=== PATIENT | female | born 1980 | race Caucasian/White ===

== ENCOUNTER 2018-01-06 12:49 | Inpatient (IN) | payer OTHER ==
[~2018-01-06] VITALS: Ht 162.6 cm; Wt 51.7 kg
[2018-01-08] MEDS ORDERED: MAG HYDROX/AL HYDROX/SIMETH 30 ML LIQUID UDC PO PRN (19:45)
[2018-01-08] MEDS ORDERED: MAGNESIUM HYDROXIDE 30 ML LIQUID UDC PO PRN (19:45)
[2018-01-08] MEDS ORDERED: IBUPROFEN 400 MG TABLET PO PRN (19:45)
[2018-01-08] MEDS ORDERED: ONDANSETRON ODT 4 MG TAB.RAPDIS SL PRN (19:45)
[2018-01-08] MEDS ORDERED: ONDANSETRON 4 MG/2 ML VIAL IM PRN (19:45)
[2018-01-08] MEDS ORDERED: LOPERAMIDE HCL 2 MG CAPSULE PO PRN ×2 (19:45)
[2018-01-08] MEDS ORDERED: DICYCLOMINE HCL 20 MG TABLET PO PRN (19:45)
[2018-01-08] MEDS ORDERED: ACETAMINOPHEN 325 MG TABLET PO PRN (19:45)
[2018-01-08] MEDS ORDERED: LORAZEPAM 2 MG/1 ML VIAL IM PRN (19:45)
[2018-01-08] MEDS ORDERED: LORAZEPAM 1 MG TABLET PO PRN ×2 (19:45)
--- NOTE | 2018-01-08 19:55 | NUR ---
INTAKE NOTE Pre-assessment completed in intake. Patient is a 37 year old female presented in intake office for Benzodiazepines/ Klonopin (Clonazepam) and Alcohol/Beer withdrawal. Patient reports NKA. Patient is ambulatory, A&Ox4. Patient noted sad with poor eye contact. Patient appears unwashed, with uncombed hair, and with dark circles around eyes. VS: BP: 119/89, HR: 84, T: 97.8, SPO2 98%, RR:18, pain level "0/10". CIWA=12. The patient presented with anxiety, agitation, nervousness, tremors, sweating, restlessness, and fatigue. Patient denies SI/HI. Upon initial assessment respirations unlabored and even. Patient denies SOB and chest pain. Patient educated on the admission process. Will continue with the admission when patient coming on the unit.
[2018-01-08 19:58] VITALS: BP 119/89
--- NOTE | 2018-01-08 19:58 | NUR ---
ADMISSION NOTE New patient is a 37 year old female admitted to [facility] on 01/08/2018 @1958 for Benzodiazepines/Klonopin and Alcohol/Beer withdrawal. Patient reports NKA. Patient is on Full Code, Regular diet, is on Fall and Seizures precautions. The patient denies a history of withdrawal-induced seizures. Past Medical History: Anxiety, Depression, Polycystic Ovary Syndrome, Hysterectomy, pre-cancer cervical removal, appendectomy. PCP - "Joanie Mariano MD". Pre-assessment completed in intake. Patient provided UDS test at this time. Patient is ambulatory with steady gate, stable, A&Ox4. Patient noted sad with poor eye contact. Patient appears unwashed , uncombed hair, and with dark circles around eyes. Height: 64 in, Weight: 114lbs by standing scale. CIWA=12. The patient presented with anxiety, agitation, nervousness, tremors, sweating, restlessness, and fatigue. Patient denies SI/HI. Upon initial assessment VS: BP: 119/89, HR: 84, T: 97.8, SPO2 98%, RR:18, pain level "0/10". Respirations unlabored and even. Lung Sounds clear throughout. Heart rate 's regular, no murmur noted. Patient denies SOB and chest pain. Bowel Sounds active in all x4 quadrants. Abdomen is soft and non-tender. PERRLA, brisk capillary refill, platform stapler equal and strong. Skin is intact, warm and dry to touch. Patient reports the following Substances Use: 1 ." Klonopin (Clonazepam) PO 1-2 mg every day since 10/2016. Last used on 01/08/2018 @1930". 2. " Alcohol/Beer 14 bottles every day since 10/2017. Last used 14 bottles of beer on 01/09/2018". He reports "first time in detox". Patient reports the longest being "4 years and 5 months of sobriety : 05/2012 to 10/2016". Patient reports "Tobacco use since 1994 every day 1pack = 20 cigarettes". Education for smoking cessation provided to patient. Patient brought home medications. Reconciliation Medications done. Patient oriented to her room, Nurse Call Light, and [facility]. Encouraged fluids as tolerated. Encouraged to attend activities groups. All needs met. Safety measures on place. Call light within reach, bed in lowest position and locked, padded rails up bilaterally. Will continue to monitor closely. Addendum: 01/09/18 at 0332 by KERRI WRAY RN " Alcohol/Beer 14 bottles (12 oz each) PO every day since 10/2016. Last used 14 bottles of beer (12 oz each) PO on 01/08/2018".
[2018-01-08 20:00] VITALS: BP 119/89
[2018-01-08 20:37] LABS: *URINE HCG, QUAL NEGATIVE (NEGATIVE)
[2018-01-08] MEDS ORDERED: DIAZEPAM 5 MG TABLET PO PRN (20:45)
[2018-01-08] MEDS ORDERED: DIAZEPAM 10 MG TABLET PO PRN (20:45)
[2018-01-08 20:54] LABS: *AMPHETAMINE, URINE NEGATIVE (NEGATIVE); *BARBITURATE, URINE NEGATIVE (NEGATIVE); *CANNABINOID, URINE NEGATIVE (NEGATIVE); *COCCAINE, URINE NEGATIVE (NEGATIVE); *OPIATE, URINE NEGATIVE (NEGATIVE); *PHENCYCLIDINE SCREEN,URINE NEGATIVE (NEGATIVE)
[2018-01-08] MEDS ORDERED: THIAMINE HCL 200 MG/2 ML VIAL IM ONE (21:00)
[2018-01-08] MEDS: diphenhydrAMINE 50 MG CAPSULE PO PRN (21:28)
[2018-01-08] MEDS: DIAZEPAM 10 MG TABLET PO PRN (21:28)
--- NOTE | 2018-01-08 21:28 | NUR ---
PRN BENADRYL 50 MG 1 CAP PO ADMINISTRATION Patient c/o insomnia. PRN Benadryl 50 mg 1 cap PO administrated with full glass of water as ordered. Patient tolerated well. All needs met. Safety measures on place. Call light within reach, bed in lowest position locked, padded rails up bilaterally. Will continue to monitor closely.
--- NOTE | 2018-01-08 21:28 | NUR ---
PRN VALIUM (DIAZEPAM 10 MG TAB) 10 MG 1 TABLET PO ADMINISTRATION PRN Valium (Diazepam 10 mg 1 tab) 10 mg 1 tab PO administrated for CIWA= 12 as ordered. Patient tolerated well. All needs met. Safety measures on place. Call light within reach, bed in lowest position locked, padded rails up bilaterally. Will continue to monitor closely.
[2018-01-08 21:50] LABS: BASOPHILS # (AUTO) 0.1 K/uL (0.0-8.0); BASOPHILS % (AUTO) 0.7 % (0.0-2.0); EOSINOPHILS # (AUTO) 0.1 K/uL (0.0-0.7); EOSINOPHILS % (AUTO) 1.9 % (0.0-7.0); HEMATOCRIT 45.5 % (31.2-41.9); HEMOGLOBIN 15.6 g/dL (10.9-14.3); LYMPHOCYTES # (AUTO) 3.8 K/uL (20.0-40.0); LYMPHOCYTES % (AUTO) 54.6 % (20.5-51.5); MEAN CORPUSCULAR HEMOGLOBIN 33.2 uug (24.7-32.8); MEAN CORPUSCULAR HGB CONC 34 g/dL (32.3-35.6); MEAN CORPUSCULAR VOLUME 96.9 fL (75.5-95.3); MONOCYTES # (AUTO) 0.2 K/uL (2.0-10.0); MONOCYTES % (AUTO) 3.4 % (0.0-11.0); NEUTROPHILS # (AUTO) 2.7 K/uL (1.8-8.9); NEUTROPHILS % (AUTO) 39.4 % (38.5-71.5); PLATELET COUNT (AUTO) 211 K/uL (179-408); RED BLOOD CELL COUNT(AUTO) 4.69 MIL/uL (3.63-4.92); WHITE BLOOD COUNT (AUTO) 6.9 K/uL (3.8-11.8)
[2018-01-08 22:04] LABS: BILIRUBIN,TOTAL 0.4 mg/dL (0.2-1.0); CREATININE 0.7 mg/dL (0.6-1.3); POTASSIUM 3.4 mmol/L (3.5-5.1); TOTAL PROTEIN, SERUM 8.1 g/dL (6.4-8.2)
[2018-01-08 22:18] LABS: THYROID STIMULATING HORMONE 1.075 mIU/mL (0.358-3.740)
--- NOTE | 2018-01-08 22:28 | NUR ---
RE-ASSESSMENT Patient is sleeping. RR 15. Respirations even and unlabored. PRN Valium (Diazepam 10 mg 1 tab) 10 mg 1 tab PO administrated for CIWA= 12 @2128 as ordered was effective. All needs met. Safety measures on place. Call light within reach, bed in lowest position locked, padded rails up bilaterally. Will continue to monitor closely.
--- NOTE | 2018-01-08 22:28 | NUR ---
RE-ASSESSMENT Patient is sleeping. RR 15. Respirations even and unlabored. PRN Benadryl 50 mg 1 cap PO administrated for insomnia @2127 was effective. All needs met. Safety measures on place. Call light within reach, bed in lowest position locked, padded rails up bilaterally. Will continue to monitor closely.
[2018-01-09] VITALS: BP 107/63
[2018-01-09] MEDS ORDERED: [UNRECOGNIZED DRUG - OTHER] (01:49)
[2018-01-09] MEDS ORDERED: [UNRECOGNIZED DRUG - OTHER] (01:49)
[2018-01-09] MEDS ORDERED: dandelion root (01:49)
[2018-01-09] MEDS ORDERED: BUPR300T52 PO (01:49)
[2018-01-09] MEDS ORDERED: MAGN400C PO (01:49)
[2018-01-09] MEDS ORDERED: VITA1TAB37 PO (01:49)
[2018-01-09] MEDS ORDERED: [UNRECOGNIZED DRUG - OTHER] (01:49)
[2018-01-09] MEDS ORDERED: CLON0.5T4 PO (01:49)
[2018-01-09] MEDS ORDERED: CINN1CAP PO (01:49)
[2018-01-09] MEDS ORDERED: ZINC10OI TP (01:49)
[2018-01-09] MEDS ORDERED: DIPH25CA83 PO (01:49)
[2018-01-09] MEDS ORDERED: DISU250T7 PO (01:49)
[2018-01-09] MEDS ORDERED: [UNRECOGNIZED DRUG - OTHER] (01:49)
[2018-01-09] MEDS ORDERED: METF500T3 PO (01:49)
[2018-01-09] MEDS ORDERED: ESCI10TA55 PO (01:49)
[2018-01-09 04:00] VITALS: BP 107/72
--- NOTE | 2018-01-09 06:58 | NUR ---
END OF SHIFT NOTE: A 37 year old female is admitted for Benzodiazepines/Klonopin and Alcohol/Beer withdrawal. PRN Medications only, no taper ordered. She is anxious, disheveled, and uncombed. Educated in safety and hygiene care. Encouraged to independently perform hygiene care. CIWA=12 @2000, CIWA=10 @0000 and CIWA=9 @0400. Patient presented with anxiety, agitation, nervousness, restlessness, tremors, fatigue, abdominal cramps, sweating, and insomnia. PRN Benadryl 50 mg 1 cap PO administrated for insomnia @2127, PRN Valium (Diazepam 10 mg 1 tab) 10 mg 1 tab PO administrated for CIWA= 12 @2128 were effective. Calm and safety environment with minimized noises was provided. Patient slept 7 hours, intake 1,296 ml, voided x1. All needs met. Safety measures in the place: Call light within reach, bed in the lowest position and locked, padded rails up x2. Patient endorsed to day shift nurse.
--- NOTE | 2018-01-09 07:30 | NUR ---
START OF SHIFT Pt 37 y/o female admitted for benzo/klono, etoh/beer withdrawal. Pt received in room on bed awake. Pt alert and oriented to name, place, and time. Perrla. Skin warm and moist to touch. Respirations even and unlabored. Bilateral hand tremors noted. Pt appears disheveled and unkempt with hair uncombed. Clothes scattered throughout the room observed. Encouraged to maintain hygiene. It was reported that pt slept for 7 hours last night. Last reported ciwa=9 @ 2100. Pt is currently on a PRN valium taper. Bed on lowest position with side rails x2 up for safety. Call light within reach.
[2018-01-09 08:00] VITALS: BP 115/73
[2018-01-09] MEDS: THIAMINE HCL 100 MG TABLET PO SCH (08:24)
[2018-01-09] MEDS: FOLIC ACID 1 MG TABLET PO SCH (08:24)
[2018-01-09] MEDS: MULTIVITAMINS,THERAPEUTIC TABLET PO SCH (08:24)
[2018-01-09] MEDS: DIAZEPAM 10 MG TABLET PO PRN (08:25)
--- NOTE | 2018-01-09 08:25 | NUR ---
PRN Pt restless, anxious,and agitated. Pt hyperverbal with pressured speech noted. ciwa=10. Valium 10 mg po prn per MD order given and tolerated well.
[2018-01-09] MEDS ORDERED: TUBERCULIN,PURIF.PROT.DERIV. 5 TU/0.1 ML TEST ID ONE (09:00)
--- NOTE | 2018-01-09 09:25 | NUR ---
PRN EVAL Pt observed laying on bed watching television. Pt with ciwa=3 noted.
[2018-01-09] MEDS ORDERED: PNEUMOCOCCAL 23-VAL P-SAC VAC 0.5 ML VIAL IM ONE (10:00)
[2018-01-09 12:18] VITALS: BP 139/91
[2018-01-09] MEDS ORDERED: POTASSIUM CHLORIDE 20 MEQ TAB.PRT.SR PO ONE (13:00)
[2018-01-09] MEDS: GLUCOPHAGE 500 MG PO SCH ×2 (13:27→17:45)
[2018-01-09] MEDS: CLONIDINE HCL 0.1 MG TABLET PO PRN (13:28)
--- NOTE | 2018-01-09 13:40 | NUR ---
PRN Pt with pk=358/92. Catapres po prn per MD order given and tolerated well.
[2018-01-09] MEDS: DIAZEPAM 10 MG TABLET PO SCH ×3 (14:37→20:54)
--- NOTE | 2018-01-09 14:40 | NUR ---
PRN EVAL pt with bp 128/76.
[2018-01-09 16:00] VITALS: BP 119/70
--- NOTE | 2018-01-09 17:47 | NUR ---
PRN Pt with c/o generalized body pain 03/21. Motrin po prn per MD order given and tolerated well.
--- NOTE | 2018-01-09 18:35 | NUR ---
START OF SHIFT NOTE: Endorsed patient is a 37 year old female presented for Benzodiazepines/Klonopin and Alcohol/Beer withdrawal, continue 5 day Valium taper, which tolerated well. Patient is alert and oriented x4. Patient noted anxious, agitated, disheveled, with uncombed hair. Last CIWA=9 @1600. Patient presented with anxiety, agitation, nervousness, restlessness, tremors, fatigue, and sweating. PRN Valium 10 mg 1 tab PO administrated @0825, PRN Clonidine 0.1 mg 1 tab PO administrated @1328, PRN Motrin 400mg 1 tab PO administrated @1746 were effective, per day shift nurse report. Encouraged to express her feelings. Encouraged to fluids intake as tolerated. All needs met. Safety measures in place: Call light within reach, bed is locked and in lowest position, padded bed rails up bilaterally. Patient endorsed by outgoing day shift nurse. Will continue to monitor closely.
--- NOTE | 2018-01-09 18:35 | NUR ---
END OF SHIFT Pt 37 y/o female admitted for benzo/klono, etoh/beer withdrawal. Pt alert and oriented to name, place, and time. Perrla. Skin warm and moist to touch. Respirations even and unlabored. Bilateral hand tremors noted. Pt appears disheveled and unkempt with hair uncombed. Clothes scattered throughout the room observed. Encouraged to maintain hygiene. Pt observed mostly isolative to room throughout the day. Pt was seen by MD today. Pt medication compliant and tolerated well. No ASE noted. Pt is currently on a 5 day ativan taper and is on day 1. CIWA= 10@0800, 4@1200, and 9@1600. Pt received prn valium per MD order this morning. Pt alos received k-dur 20mEq po x1 this afternoon. Bed on lowest position with side rails x2 up for safety. Call light within reach.
[2018-01-09 20:00] VITALS: BP 105/70
[2018-01-09] MEDS: diphenhydrAMINE 50 MG CAPSULE PO PRN (20:54)
--- NOTE | 2018-01-09 21:54 | NUR ---
RE-ASSESSMENT Patient is sleeping. RR 16. Respirations even and unlabored. PRN Benadryl 50 mg 1 cap PO administrated for insomnia @2053 as ordered was effective. All needs met. Safety measures on place. Call light within reach, bed in lowest position locked, padded rails up x2. Will continue to monitor closely.
[2018-01-10] VITALS: BP 93/67
[2018-01-10 04:00] VITALS: BP 101/62
--- NOTE | 2018-01-10 07:25 | NUR ---
END OF SHIFT NOTE: A 37 year old female continues 5 day Valium taper for Benzodiazepines/Klonopin and Alcohol/Beer withdrawal. Withdrawal symptoms closely monitored. Patient remains compliant with treatment, medications, and diet regime. Patient is alert and oriented x4. Patient noted anxious, sad, uncombed. Educated in safety and hygiene care. Encouraged to independently perform hygiene care. Encouraged verbalization of feelings, fears, and anxiety. CIWA=9@2000, CIWA=8 @0000. Last CIWA=7 @0400: Patient presented with anxiety, agitation, nervousness, tremors, sweating, body aches, irritability, fatigue, and restlessness. CIWA taken while patient was alert. Encouraged use of relaxation skills. PRN Benadryl 50 mg 1 cap PO administrated for insomnia @2053 as ordered was effective. Safe and calm environment with minimized noises was provided. Patient slept 8 hours, intake 1,600 ml, voided x1. All needs met. Safety measures in the place: Call light within reach, bed in the lowest position locked, padded rails up x2. Patient endorsed to day shift nurse.
--- NOTE | 2018-01-10 07:30 | NUR ---
START OF SHIFT Pt 37 y/o female admitted for benzo/ klonopin/ etoh/ beer withdrawal. Pt received in room awake watching television. Pt alert and oriented to name, place, and time. Perrla. Skin warm and moist to touch. Respirations even and unlabored. Bilateral hand tremors noted. Pt appears disheveled with hair uncombed. Pt observed wearing the same clothes from yesterday. Open empty bottles of water scattered throughout the room. Encouraged to maintain hygiene. It was reported that pt slept for 8 hours last night. Last ciwa=7 reported @0400. Pt is on a 5 day valium taper and is on day 2. Bed on lowest position with side rails x2 up for safety. Call light within reach.
[2018-01-10 08:00] VITALS: BP 108/58
[2018-01-10] MEDS: GABAPENTIN 300 MG CAPSULE PO SCH ×3 (08:36→21:03)
[2018-01-10] MEDS: THIAMINE HCL 100 MG TABLET PO SCH (08:36)
[2018-01-10] MEDS: FOLIC ACID 1 MG TABLET PO SCH (08:36)
[2018-01-10] MEDS: GLUCOPHAGE 500 MG PO SCH ×2 (08:36→17:38)
[2018-01-10] MEDS: MULTIVITAMINS,THERAPEUTIC TABLET PO SCH (08:37)
[2018-01-10] MEDS: DIAZEPAM 10 MG TABLET PO SCH ×3 (08:37→21:03)
[2018-01-10] MEDS: buPROPion XL 150 MG TAB.SR.24H PO SCH (08:38)
--- NOTE | 2018-01-10 09:30 | NUR ---
Therapist prompted client about group times. Client stated she would attend all groups today.
[2018-01-10] MEDS: HYDROXYZINE PAMOATE 25 MG CAPSULE PO PRN ×2 (10:51→17:38)
--- NOTE | 2018-01-10 10:52 | NUR ---
PRN Pt states feels anxious. Pt restless an easily irritable. Pt not able to sit still. Vistaril po prn per MD order given and tolerated well.
[2018-01-10 11:08] LABS: HEPATITIS B SURFACE AG Negative (Negative)
--- NOTE | 2018-01-10 11:52 | NUR ---
BRINA DEJESUS pt observed sitting in recreational room at this time.
[2018-01-10 12:00] VITALS: BP 125/86
--- NOTE | 2018-01-10 14:26 | NUR ---
Therapist prompted client to come to groups.
[2018-01-10 16:00] VITALS: BP 122/74
--- NOTE | 2018-01-10 17:42 | NUR ---
PRN Pt restless and anxious. Pt cannot sit still. Vistaril po prn per MD order given and tolerated well.
--- NOTE | 2018-01-10 18:42 | NUR ---
BRINA DEJESUS Pt observed sitting in recreation room.
--- NOTE | 2018-01-10 18:49 | NUR ---
END OF SHIFT Pt 37 y/o female admitted for benzo/klono, etoh/beer withdrawal. Pt alert and oriented to name, place, and time. Perrla. Skin warm and moist to touch. Respirations even and unlabored. Bilateral hand tremors noted. Pt appears disheveled and unkempt with hair uncombed. Open empty bottles of water scattered throughout the room. Encouraged to maintain hygiene. Pt observed mostly in recreational room throughout the day. Pt was seen by MD today. Pt medication compliant and tolerated well. No ASE noted. Pt is currently on a 5 day ativan taper and is on day 2. CIWA= 9@0800, 9@1200, and 9@1600. Bed on lowest position with side rails x2 up for safety. Call light within reach.
--- NOTE | 2018-01-10 18:49 | NUR ---
START OF SHIFT NOTE: Endorsed patient presented for Benzodiazepines/Klonopin and Alcohol/Beer withdrawal, continues 5 day Valium taper. She is tolerated well. Patient is alert and oriented x4. Patient noted anxious, disheveled, with uncombed hair. Last CIWA=9 @1600. Patient presented with anxiety, agitation, depression, nervousness, restlessness, tremors, fatigue, and sweating per day shift nurse report. Encouraged to express her feelings. Encouraged to fluids intake as tolerated. PRN Vistaril PO administrated for anxiety by day shift nurse was effective. Patient attended groups activities. All needs met. Safety measures in place: Call light within reach, bed is locked and in lowest position, padded bed rails up bilaterally. Patient endorsed by day shift nurse. Will continue to monitor closely.
[2018-01-10 20:00] VITALS: BP 112/80
[2018-01-10] MEDS: diphenhydrAMINE 50 MG CAPSULE PO PRN (21:02)
--- NOTE | 2018-01-10 21:02 | NUR ---
PRN BENADRYL 50 MG 1 CAPSULE PO ADMINISTRATION PATIENT C/O INSOMNIA AND ASKED AID. PRN BENADRYL 50 MG 1 CAPSULE PO FOR INSOMNIA ADMINISTRATED ORDERED. PATIENT TOLERATED WELL. ALL SAFETY MEASURES IN PLACE: CALL LIGHT WITHIN REACH, BED LOCKED IN LOWEST POSITION, PADDED BED RAILS UP X2. WILL CONTINUE TO MONITOR CLOSELY.
--- NOTE | 2018-01-10 22:02 | NUR ---
RE-ASSESSMENT PATIENT IS SLEEPING. RESPIRATIONS ARE EVEN AND UNLABORED. RR=16. PRN BENADRYL 50 MG 1 CAPSULE PO ADMINISTRATED FOR INSOMNIA 2050 WAS EFFECTIVE. ALL NEEDS MET. SAFETY MEASURES IN PLACE: CALL LIGHT WITHIN REACH, BED IS LOCKED IN LOWEST POSITION, BED RAILS UP X2. WILL CONTINUE TO MONITOR CLOSELY.
[2018-01-10] MEDS: MIRALAX 17 GM POWD.PACK PO PRN (22:39)
--- NOTE | 2018-01-10 22:39 | NUR ---
PRN MIRALAX 17 GM POWD.PACK PO ADMINISTRATION PATIENT C/O CONSTIPATION AN ASKED AID. PRN MIRALAX 17 GM 1 POWD.PACK FOR CONSTIPATION ADMINISTRATED ORDERED. PATIENT TOLERATED WELL. ALL SAFETY MEASURES IN PLACE: CALL LIGHT WITHIN REACH, BED LOCKED IN LOWEST POSITION, PADDED BED RAILS UP X2. WILL CONTINUE TO MONITOR CLOSELY.
--- NOTE | 2018-01-10 23:39 | NUR ---
RE-ASSESSMENT Patient is sleeping. RR 15. Respirations even and unlabored. Effectiveness of PRN Miralax administrated for constipation @2239 will continued to be monitored. All needs met. Safety measures on place. Call light within reach, bed in lowest position and locked, padded rails up bilaterally rails up bilaterally. Will continue to monitor closely.
[2018-01-11] VITALS: BP 105/58
[2018-01-11 04:00] VITALS: BP 100/58
--- NOTE | 2018-01-11 06:49 | NUR ---
END OF SHIFT NOTE: Patient continues 5 day Valium taper for Benzodiazepines/Klonopin and Alcohol/Beer withdrawal. Withdrawal symptoms closely monitored. Patient remains compliant with treatment, medications, and diet regime. Patient is alert and oriented x4. Patient noted anxious, worry, unkempt, and uncombed. Educated in safety and hygiene care. Encouraged to independently perform hygiene care. Encouraged verbalization of feelings, fears, and anxiety. Encouraged use of relaxation skills. CIWA=12 @2000, CIWA=10 @0000. Last CIWA=7 @0400: Patient presented with anxiety, agitation, nervousness, tremors, sweating, stomach cramps, and insomnia. CIWA taken while patient was alert. PRN Benadryl 50 mg 1 cap PO administrated for insomnia @2101 as ordered was effective. PRN Miralax 17 gm 1 Powd. Pack PO administrated @2238 for constipation was ineffective. Safe and calm environment with minimized noises was provided. Patient slept 8 hours, intake 1,600 ml, voided x1. All needs met. Safety measures in the place: Call light within reach, bed in the lowest position locked, padded rails up x2. Patient endorsed to day shift nurse.
--- NOTE | 2018-01-11 07:05 | NUR ---
Start of Shift Shipping And Receiving Coordinator received report on 37 year old female admitted to [facility] on 01/06/18 for medical management of Benzodiazepine and ETOH withdrawal. Pt endorses NKA, full code and regular diet. Pt reports a PMH of anxiety, depression, poly-cystic Ovarian Syndrome. Pt currently on a Valium taper, tolerating well with last CIWA 7, recorded at 0400, per report. Pt administered PRN Benadryl and Miralax. Shipping And Receiving Coordinator encounters pt in bed resting with eyes closed. Rise and fall of chest noted with even rise and fall of chest noted. Bed in low position with wheels locked and side rails up x2. Will continue to monitor, support and encourage according to plan of care.
[2018-01-11] MEDS: THIAMINE HCL 100 MG TABLET PO SCH (08:19)
[2018-01-11] MEDS: GABAPENTIN 300 MG CAPSULE PO SCH ×3 (08:19→21:24)
[2018-01-11] MEDS: FOLIC ACID 1 MG TABLET PO SCH (08:19)
[2018-01-11] MEDS: DIAZEPAM 5 MG TABLET PO SCH ×4 (08:19→21:24)
[2018-01-11] MEDS: buPROPion XL 150 MG TAB.SR.24H PO SCH (08:19)
[2018-01-11] MEDS: GLUCOPHAGE 500 MG PO SCH ×2 (08:19→18:36)
[2018-01-11] MEDS: MULTIVITAMINS,THERAPEUTIC TABLET PO SCH (08:19)
[2018-01-11 08:24] VITALS: BP 107/65
[2018-01-11] MEDS: MIRALAX 17 GM POWD.PACK PO PRN (09:20)
--- NOTE | 2018-01-11 09:20 | NUR ---
BRINA Miralax Pt requests Miralax as she has not had a BM since her first day here, 01/06/18. Club Room Attendant administers medication per MD order and pt tolerated well. Will continue to monitor, support and encourage according to plan of care.
--- NOTE | 2018-01-11 10:20 | NUR ---
PRN Re-Assessment Pt has yet to have a BM, will continue to monitor, support and encourage according to plan of care.
[2018-01-11 12:05] VITALS: BP 127/73
[2018-01-11] MEDS: HYDROXYZINE PAMOATE 25 MG CAPSULE PO PRN (12:09)
--- NOTE | 2018-01-11 12:09 | NUR ---
BRINA Pérez Pt requests medication for anxiety. Pt states she is anxious after meeting with psychiatrist and became emotional. Refrigerator Mover retrieves medication for administration, but pt entered the group and telegraphic typewriter installer was not able to administer until this time. Pt is anxious after group, stating, " I was trying to breath." Medication administered per MD order and pt tolerated well. Will continue to monitor, support and encourage according to plan of care.
--- NOTE | 2018-01-11 13:09 | NUR ---
PRN Re-Assessment Pt states the medication was not effective and she remains anxious. Pt has anxious affect and congruent mood. Pt is fidgety and hyper-active. Educated pt on non-pharmacological interventions and re-assured pt, her 1500 medications will be given soon. Pt endorses understanding. Will continue to monitor, support and encourage according to plan of care.
[2018-01-11 16:50] VITALS: BP 128/73
[2018-01-11] MEDS: HYDROXYZINE PAMOATE 25 MG CAPSULE PO SCH ×2 (18:36→21:24)
--- NOTE | 2018-01-11 19:01 | NUR ---
End of Shift Posting Clerk provided report on 37 year old female admitted to [facility] on 01/06/18 for medical management of Benzodiazepine and ETOH withdrawal. Pt endorses NKA, full code and regular diet. Pt reports a PMH of anxiety, depression, poly-cystic Ovarian Syndrome. Pt currently on a Valium taper, tolerating well with last CIWA 8, recorded at 1600. Pt administered PRN Miralax at 0920 and Vistaril at 1209. Pt is calm and cooperative, anxious with flat affect and anxious mood. Pt A/O x4 and linear in thought process. Clear of speech and thought. Pt concerned about her shaky hands. Posting Clerk re-assured pt, her shaking was minor and will improve with time. Bed in low position with wheels locked and side rails up x2.
--- NOTE | 2018-01-11 19:15 | NUR ---
Start of Shift Patient Received. Patient is in the activities room participating in a group meeting. Patient continues on a modified Valium taper. Per endorsement, PRN Miralax and Vistaril with medications noted to be effective. Patient was seen and evaluated with changes to medications. PRN Vistaril changes to routine Vistaril Q4H. Last noted CIWA 8 due to increased anxiety and agitation. All needs attended to promptly. Will continue plan of care as ordered.
[2018-01-11 20:45] VITALS: BP 119/92
[2018-01-11] MEDS: diphenhydrAMINE 50 MG CAPSULE PO PRN (21:24)
--- NOTE | 2018-01-11 21:25 | NUR ---
PRN Medication Administration Patient is noted verbalizing "I have a hard time going to sleep because of my anxiety." PRN Benadryl administered with routine medications. Will continue to monitor.
--- NOTE | 2018-01-11 22:25 | NUR ---
PRN Medication Reassessment Patient is noted continuously going out for smoke break and noted to be drinking coffee. Educated patient on caffeine possibly increasing anxiety. Patient verbalized understanding. PRN Benadryl noted not effective. Will continue to monitor.
[2018-01-12 00:16] VITALS: BP 123/89
[2018-01-12] MEDS: HYDROXYZINE PAMOATE 25 MG CAPSULE PO SCH ×6 (01:18→21:05)
[2018-01-12 04:24] VITALS: BP 116/73
--- NOTE | 2018-01-12 07:03 | NUR ---
End of Shift Patient is in her room sleeping. Breathing even and non labored. Patient continues on a modified Valium taper. Patient received PRN Benadryl with medication noted to not be effective. Last noted CIWA 11 due to increased anxiety, agitation, diaphoresis, and tremors. Patient noted to sleep a total of 6 hours. All needs attended to promptly. Will endorse to continue plan of care as ordered.
--- NOTE | 2018-01-12 07:20 | NUR ---
START OF SHIFT PATIENT IS A 37 YR OLD FEMALE ADMITTED TO [facility] ON 01/06/18 FOR WITHDRAWAL FROM BENZODIAZEPINES AND ALCOHOL. SHE IS CURRENTLY ON A VALIUM TAPER AND TOLERATING WELL. PRN MEDS GIVEN ON PM SHIFT : BENADRYL. PATIENT IS ASLEEP IN BED AT THIS TIME, BREATHING EVEN AND UNLABORED, BED LOW AND LOCKED WITH SIDE RAILS UP X 2. LAST CIWA 11. WILL CONTINUE TO FOLLOW MD ORDERS.
[2018-01-12 08:00] VITALS: BP 119/83
[2018-01-12] MEDS: GLUCOPHAGE 500 MG PO SCH ×2 (08:43→17:21)
[2018-01-12] MEDS: GABAPENTIN 300 MG CAPSULE PO SCH ×3 (08:44→21:05)
[2018-01-12] MEDS: FOLIC ACID 1 MG TABLET PO SCH (08:44)
[2018-01-12] MEDS: MULTIVITAMINS,THERAPEUTIC TABLET PO SCH (08:44)
[2018-01-12] MEDS: DIAZEPAM 5 MG TABLET PO SCH ×3 (08:44→21:05)
[2018-01-12] MEDS: THIAMINE HCL 100 MG TABLET PO SCH (08:44)
[2018-01-12] MEDS: buPROPion XL 150 MG TAB.SR.24H PO SCH (08:48)
[2018-01-12 12:00] VITALS: BP 122/58
[2018-01-12 16:00] VITALS: BP 123/86
--- NOTE | 2018-01-12 18:20 | NUR ---
END OF SHIFT PATIENT IS A 37 YR OLD FEMALE ADMITTED TO [facility] ON 01/06/18 FOR WITHDRAWAL FROM BENZODIAZEPINES AND ALCOHOL. SHE IS CURRENTLY ON A VALIUM TAPER AND TOLERATING WELL. NO PRN MEDS GIVEN ON THIS SHIFT. PATIENT HAS ATTENDED ALL GROUPS TODAY. PATIENT HAD A FLUID INTAKE OF 1500ML, 5 VOIDS AND 0 STOOL THIS SHIFT. BED LOW AND LOCKED WITH SIDE RAILS UP X 2. LAST CIWA 9 @ 1600. WILL CONTINUE TO FOLLOW MD ORDERS.
--- NOTE | 2018-01-12 19:30 | NUR ---
START OF SHIFT PATIENT IS A 37 YR OLD FEMALE ADMITTED ON 01/06/18 FOR WITHDRAWAL FROM BENZODIAZEPINES AND ALCOHOL. PT IS A/O X 4,CONTINUES ON A VALIUM TAPER ORDERED AND IS TOLERATING WELL. NO PRN MEDS WERE GIVEN DURING THE DAY SHIFT SHIFT.PT IS COMPLIANT WITH MEDICATIONS AND CARE.ALL SAFETY MEASURES IN PLACE PER HOSPITAL POLICY, BED IS LOW AND LOCKED WITH SIDE RAILS UP X 2.CALL LIGHT IS WITHIN REACH. LAST CIWA 9 @ 1600. WILL CONTINUE TO MONITOR FOR SAFETY.
[2018-01-12 20:00] VITALS: BP 125/85
[2018-01-12] MEDS: diphenhydrAMINE 50 MG CAPSULE PO PRN (23:29)
--- NOTE | 2018-01-12 23:30 | NUR ---
PRN BENADRYL GIVEN ORDERED FOR C/O INSOMNIA.WILL MONITOR.
[2018-01-13] VITALS: BP_SYST 111; BP_SYST 118; BP_DIAS 76
--- NOTE | 2018-01-13 | NUR ---
CIWA DEFERRED D/T PT BEING ASLEEP.PT IS SLEEPING COMFORTABLY,BREATHING IS EVEN AND NON LABORED,NO S/S OF DISTRESS NOTED.WILL CONTINUE TO MONITOR.
--- NOTE | 2018-01-13 00:30 | NUR ---
PRN F/U PT IS RESTING IN BED WITH EYES CLOSED,APPEARS TO BE ASLEEP.BREATHING IS EVEN AND NON LABORED,NO S/S OF DISTRESS NOTED,WILL CONTINUE TO MONITOR.
[2018-01-13] MEDS: HYDROXYZINE PAMOATE 25 MG CAPSULE PO SCH ×6 (02:44→22:11)
[2018-01-13 04:00] VITALS: BP 103/63
--- NOTE | 2018-01-13 04:00 | NUR ---
CIWA DEFERRED D/T PT BEING ASLEEP.PT IS SLEEPING COMFORTABLY,BREATHING IS EVEN AND NON LABORED,NO S/S OF DISTRESS NOTED.WILL CONTINUE TO MONITOR.
--- NOTE | 2018-01-13 06:49 | NUR ---
END OF SHIFT PATIENT IS A 37 YR OLD FEMALE ADMITTED ON 01/06/18 FOR WITHDRAWALS FROM BENZODIAZEPINES AND ALCOHOL. PT IS A/O X 4,CONTINUES ON A VALIUM TAPER ORDERED AND IS TOLERATING WELL. PRN BENADRYL WAS GIVEN FOR INSOMNIA AND WAS EFFECTIVE. PT SLEPT 7 HRS,FLUID INTAKE WAS 1562,VOIDED X 3.PT IS COMPLIANT WITH MEDICATIONS AND CARE.ALL SAFETY MEASURES IN PLACE PER HOSPITAL POLICY, BED IS LOW AND LOCKED WITH SIDE RAILS UP X 2.CALL LIGHT IS WITHIN REACH. LAST CIWA 10 @ 1999.0600 DOSE OF VISTARIL WAS HELD DUE TO PT BEING ASLEEP. MIDNIGHT AND 0400 CIWA DEFERRED D/T PT BEING ASLEEP. WILL CONTINUE TO MONITOR FOR SAFETY.
--- NOTE | 2018-01-13 07:55 | NUR ---
START OF SHIFT REPORT Received report from night nurse, patient admitted for Benzo and ETOH withdrawal. Patient continues on Valium taper. Per endorsement pt was given PRN Benadryl noted to be effective, last CIWA-10, slept for 7 hours. Received patient in her room sleeping responsive to verbal and tactile stimuli. Breathing normal no SOB noted. skin intact warm and dry to touch. Safety measures in place. Will cont with plan of care.
[2018-01-13 08:06] VITALS: BP 102/62
[2018-01-13] MEDS: GABAPENTIN 300 MG CAPSULE PO SCH ×2 (08:17→14:08)
[2018-01-13] MEDS: THIAMINE HCL 100 MG TABLET PO SCH (08:17)
[2018-01-13] MEDS: MULTIVITAMINS,THERAPEUTIC TABLET PO SCH (08:17)
[2018-01-13] MEDS: FOLIC ACID 1 MG TABLET PO SCH (08:17)
[2018-01-13] MEDS: DIAZEPAM 5 MG TABLET PO SCH ×2 (08:18→20:36)
[2018-01-13] MEDS: GLUCOPHAGE 500 MG PO SCH ×2 (08:19→17:07)
[2018-01-13] MEDS: buPROPion XL 150 MG TAB.SR.24H PO SCH (08:19)
--- NOTE | 2018-01-13 09:00 | NUR ---
Therapist prompted client about group times. Client stated she would attend all groups today.
[2018-01-13 12:00] VITALS: BP 134/88
[2018-01-13 16:00] VITALS: BP 130/86
--- NOTE | 2018-01-13 19:05 | NUR ---
END OF SHIFT NOTE Patient presented with anxiety agitation. Patient was given scheduled medications effective per pt. Patient continues with Valium taper tolerating well. Patient did not receive any PRN'S during shift. Vital signs WNL. Patient attended groups and activities. Patient remained compliant with plan of care and medication regimen. Safety measures in place. Patient endorsed to night nurse in stable condition.
--- NOTE | 2018-01-13 19:30 | NUR ---
START OF SHIFT PATIENT IS A 37 YR OLD FEMALE ADMITTED ON 01/06/18 FOR WITHDRAWAL FROM BENZODIAZEPINES AND ALCOHOL. PT IS A/O X 4,CONTINUES ON A VALIUM TAPER ORDERED AND IS TOLERATING WELL. NO PRN MEDS WERE GIVEN DURING THE DAY SHIFT.PT IS COMPLIANT WITH MEDICATIONS AND CARE.PT PRESENTED WITH ANXIETY AND C/O HAVING MUSCLE SPASMS .ALL SAFETY MEASURES IN PLACE PER HOSPITAL POLICY, BED IS LOW AND LOCKED WITH SIDE RAILS UP X 2.CALL LIGHT IS WITHIN REACH. WILL CONTINUE TO MONITOR FOR SAFETY.
[2018-01-13 20:00] VITALS: BP 121/78
[2018-01-13] MEDS: METHOCARBAMOL 750 MG TABLET PO PRN (20:03)
--- NOTE | 2018-01-13 20:04 | NUR ---
PRN ROBAXIN GIVEN FOR C/O MUSCLE CRAMPS.WILL MONITOR FOR EFFECTIVENESS.
[2018-01-13] MEDS ORDERED: GABAPENTIN 300 MG CAPSULE PO SCH (21:00)
--- NOTE | 2018-01-13 21:00 | NUR ---
PRN F/U PT STATED THAT THE MUSCLE CRAMPS ARE LESS THAN BEFORE.ROBAXIN IS MODERATELY EFFECTIVE.WILL CONTINUE TO MONITOR.
[2018-01-14] VITALS: BP 111/79
[2018-01-14] MEDS: diphenhydrAMINE 50 MG CAPSULE PO PRN ×2 (00:12→21:32)
--- NOTE | 2018-01-14 00:12 | NUR ---
PRN MEDS-- PRN BENADRYL GIVEN ORDERED FOR C/O INSOMNIA AND PRN MOM GIVEN FOR C/O CONSTIPATION.WILL CONTINUE TO MONITOR FOR EFFECTIVENESS.
--- NOTE | 2018-01-14 01:15 | NUR ---
PRN F/U PRN BENADRYL IS EFFECTIVE,PT IS RESTING IN BED WITH EYES CLOSED,APPEARS TO BE ASLEEP.NO S/S OF DISTRESS NOTED.MOM RESULT STILL PENDING.WILL CONTINUE TO MONITOR.
[2018-01-14] MEDS: HYDROXYZINE PAMOATE 25 MG CAPSULE PO SCH ×6 (02:00→21:32)
--- NOTE | 2018-01-14 04:00 | NUR ---
V/S REFUSED/CIWA DEFERRED PT IS SLEEPING COMFORTABLY IN BED,BREATHING IS EVEN AND NON LABORED,NO S/S OF DISTRESS NOTED.WILL CONTINUE TO MONITOR.
--- NOTE | 2018-01-14 06:51 | NUR ---
END OF SHIFT PATIENT IS A 37 YR OLD FEMALE ADMITTED ON 01/06/18 FOR WITHDRAWAL FROM BENZODIAZEPINES AND ALCOHOL. PT IS A/O X 4,CONTINUES ON A VALIUM TAPER ORDERED AND IS TOLERATING WELL. PRN MEDS ROBAXIN,BENADRYL AND MOM WERE GIVEN DURING THE NIGHT.PT SLEPT 6 HRS,FLUID INTAKE WAS 855 MLS,VOIDED X 2 .LAST CIWA WAS 5 AT MIDNIGHT.PT IS COMPLIANT WITH MEDICATIONS AND CARE.ALL SAFETY MEASURES IN PLACE PER HOSPITAL POLICY, BED IS LOW AND LOCKED WITH SIDE RAILS UP X 2.CALL LIGHT IS WITHIN REACH. WILL CONTINUE TO MONITOR FOR SAFETY.
--- NOTE | 2018-01-14 07:44 | NUR ---
START OF SHIFT NOTE Received report from night nurse, patient admitted for Benzo and ETOH withdrawal. Patient continues on Valium taper. Per endorsement pt was given PRN Benadryl/Milk of magnesia/Robaxin noted to be effective, last CIWA-5, slept for 6 hours. Received patient in her room alert awake. Patient noted anxious, agitated wants to go down for smoking. Educated patient regarding plan of care and medication regimen. Breathing normal no SOB noted. skin intact warm and dry to touch. Safety measures in place. Will cont with plan of care.
[2018-01-14 08:00] VITALS: BP 111/78
[2018-01-14] MEDS: buPROPion XL 150 MG TAB.SR.24H PO SCH (08:01)
[2018-01-14] MEDS: GABAPENTIN 300 MG CAPSULE PO SCH ×2 (08:01→14:00)
[2018-01-14] MEDS: FOLIC ACID 1 MG TABLET PO SCH (08:01)
[2018-01-14] MEDS: MULTIVITAMINS,THERAPEUTIC TABLET PO SCH (08:01)
[2018-01-14] MEDS: GLUCOPHAGE 500 MG PO SCH ×2 (08:01→17:00)
[2018-01-14] MEDS: THIAMINE HCL 100 MG TABLET PO SCH (08:01)
[2018-01-14] MEDS: METHOCARBAMOL 750 MG TABLET PO PRN (10:23)
--- NOTE | 2018-01-14 10:23 | NUR ---
PRN ROBAXIN Patient c/o of muscle spasms, restless legs. PRN Robaxin 750mg PO given as ordered. Will cont to monitor and reassess.
--- NOTE | 2018-01-14 11:23 | NUR ---
ROBAXIN REASSESSMENT Per pt Robaxin was effective feeling relief from muscle spasms and restless legs.
[2018-01-14 13:36] VITALS: BP 135/93
--- NOTE | 2018-01-14 13:45 | NUR ---
BEHAVIOR NOTE Patient c/o intense feelings of panic, appears disheveled, restless, fidgety, highly distressed, agitated, and anxious, increased heart rate. Patient emotionally unstable and on the verge of crying when seeking staff. Patient is unable to take care of herself at this time. Patient is unable to consume meals at this time and has trouble with insomnia. Patient had 3x episodes during shift. Vistaril given as ordered and reassured pt. MD aware of episodes.
[2018-01-14] MEDS: CLONIDINE HCL 0.1 MG TABLET PO PRN (15:15)
--- NOTE | 2018-01-14 15:15 | NUR ---
PRN CLONIDINE Patient noted with blood pressure 142/94, HR-102. PRN Clonidine 0.1mg PO given as ordered. Will cont to monitor and reassess.
[2018-01-14 16:00] VITALS: BP 125/78
--- NOTE | 2018-01-14 16:15 | NUR ---
CLONIDINE REASSESSMENT Blood pressure noted 136/82, HR-89, clonidine noted effective.
--- NOTE | 2018-01-14 19:03 | NUR ---
END OF SHIFT NOTE Patient is alert oriented. Patient is anxious, agitated, worried with irritable facial expression. Mood is sad. Patient has clothes thrown all over her room, empty bottles in room. Patient has completed her Valium taper tolerated well and set for discharge in am. During shift patient presented with increased anxiety, agitation, muscle spasms, restless legs, increased blood pressure, patient was given scheduled and PRN Robaxin, Clonidine noted to be effective. Patient has poor food intake due to her anxiety,agitation encourage pt to develop coping skills and utilization of non pharmacological intervention. Patient was encouraged to participates in groups therapy session. Encourage diversional activities to alleviate anxiety. Patient denies any SI/HI. Safety measures in place. Patient endorsed to night nurse in stable condition.
--- NOTE | 2018-01-14 19:30 | NUR ---
START OF SHIFT Pt is a 37 y/o female admitted on 01/06/18 for benzo and ETOH withdrawal. Pt finished a 5 day Valium taper today and is scheduled to be d/c tomorrow. Per day shift nurse, PRN Clonidine and Robaxin administered and last CIWA 10. Pt presented with severe anxiety throughout day shift with difficulty coping. Upon assessment pt presents with anxiety, agitation, irritability, restlessness, hyperverbal, racing thoughts, sweats, tremors, flushed skin, depressed affect, difficulty sleeping, increased HR, dysphoria, anhedonia and is occasionally tearful. Pts room is unkempt and is hoarding food. Medications due. Safety measures in place. Call light within reach. Will continue to monitor.
[2018-01-14 20:00] VITALS: BP 123/81
[2018-01-14] MEDS ORDERED: GABAPENTIN 300 MG CAPSULE PO SCH (21:00)
--- NOTE | 2018-01-14 21:32 | NUR ---
PRN VISTARIL AND BENADRYL ADMINISTRATION Pt presents with severe anxiety and requests sleep aid. Safety measures in place. Call light within reach. Will continue to monitor.
--- NOTE | 2018-01-14 22:32 | NUR ---
PRN VISTARIL AND BENADRYL REASSESSMENT Pts anxiety went from severe to moderate, pt still requesting aid for anxiety. Encouraged relaxation and distraction techniques at this time. Pt is still awake, states she feels more tired and is now laying in bed. Safety measures in place. Call light within reach. Will continue to monitor.
--- NOTE | 2018-01-15 | NUR ---
CIWA DEFERRED AND VITALS REFUSED Pt laying in bed with eyes closed, CIWA deferred, to be assessed when pt is awake per orders. Vitals refused. Respirations even and unlabored. Safety measures in place. Call light within reach.
[2018-01-15] MEDS ORDERED: BUPR-96 PO (00:43)
[2018-01-15] MEDS ORDERED: GABA-534 PO (00:44)
[2018-01-15] MEDS ORDERED: METH-406 PO (00:44)
[2018-01-15] MEDS ORDERED: CLON0.1T14 PO (00:44)
[2018-01-15] MEDS ORDERED: HYDR-3895 PO (00:44)
[2018-01-15] MEDS: HYDROXYZINE PAMOATE 25 MG CAPSULE PO SCH ×3 (02:00→09:25)
--- NOTE | 2018-01-15 07:07 | NUR ---
END OF SHIFT Pt is a 37 y/o female admitted on 01/06/18 for benzo and ETOH withdrawal. Pt finished a 5 day Valium taper yesterday and is scheduled to be d/c today. Pt presented with anxiety, agitation, irritability, restlessness, hyperverbal, racing thoughts sweats, tremors, flushed skin, depressed affect, difficulty falling and staying asleep, increased HR, dysphoria, anhedonia and was occasionally tearful. Pts room is unkempt and is hoarding food. Scheduled medications and PRN Vistaril and Benadryl administered, effective in S/S of withdrawal AEB CIWA 12 lowered to 5 during shift. Pt slept 4 hours. Intake 1500 ml, void x 2, stool x 0. Safety measures in place. Call light within reach. Pts needs have been met. Endorsed to day shift nurse.
--- NOTE | 2018-01-15 07:20 | NUR ---
START OF SHIFT NOTE Received report from night nurse, patient admitted for Benzo and ETOH withdrawal. Patient completed her Valium taper tolerated well. Per endorsement pt was given PRN Benadryl/Vistaril effective per night nurse, last CIWA-5, slept for 4 hours. Received patient in her room asleep responsive to verbal and tactile stimuli. Breathing normal no SOB noted. skin intact warm and dry to touch. Patient id set for discharge today. Safety measures in place. Will cont with plan of care.
[2018-01-15 08:00] VITALS: BP 106/64
[2018-01-15] MEDS: GLUCOPHAGE 500 MG PO SCH (08:10)
[2018-01-15] MEDS: GABAPENTIN 300 MG CAPSULE PO SCH (08:11)
[2018-01-15] MEDS: FOLIC ACID 1 MG TABLET PO SCH (08:11)
[2018-01-15] MEDS: THIAMINE HCL 100 MG TABLET PO SCH (08:11)
[2018-01-15] MEDS: buPROPion XL 150 MG TAB.SR.24H PO SCH (08:12)
[2018-01-15] MEDS: MULTIVITAMINS,THERAPEUTIC TABLET PO SCH (08:12)
[2018-01-15] MEDS: METHOCARBAMOL 750 MG TABLET PO PRN (09:25)
--- NOTE | 2018-01-15 09:25 | NUR ---
PRN ROBAXIN Patient c/o of muscle spasms, PRN Robaxin 750mg PO given as ordered. Will cont to monitor and reassess the pt.
--- NOTE | 2018-01-15 09:45 | NUR ---
DISCHARGE NOTE Patient has been discharged from [facility] [place] Patient is in Stable condition, VS WNL. Denies suicidal and homicidal ideations at this time. All documentation has been completed, paperwork signed and dated. Pt left with all of her belongings, medications and prescriptions. Pt has been discharged from [facility] on 01/15/18 at 1045. has been Notified.
== END 2018-01-15 09:45 | disposition other institution (70) | DRG 895 ==
LOC: SRC 01-08 19:05
PROVIDERS: ADMIT Internal Medicine; ATTEND Internal Medicine
PROC: HZ2ZZZZ Detoxification Services for Substance Abuse Treatment (ICD-10-PCS; principal; 2018-01-08)
PROC: HZ41ZZZ Group Counseling for Substance Abuse Treatment, Behavioral (ICD-10-PCS; 2018-01-09)
PROC: HZ31ZZZ Individual Counseling for Substance Abuse Treatment, Behavioral (ICD-10-PCS; 2018-01-10)
DX: F10.239 Alcohol dependence with withdrawal, unspecified (principal); F33.2 Major depressive disorder, recurrent severe without psychotic features; F13.230 Sedative, hypnotic or anxiolytic dependence with withdrawal, uncomplicated; Y90.6 Blood alcohol level of 120-199 mg/100 ml; F17.210 Nicotine dependence, cigarettes, uncomplicated; Z81.1 Family history of alcohol abuse and dependence; F41.0 Panic disorder [episodic paroxysmal anxiety]; Z90.710 Acquired absence of both cervix and uterus; E28.2 Polycystic ovarian syndrome; Z79.84 Long term (current) use of oral hypoglycemic drugs; Z79.899 Other long term (current) drug therapy
CPT/HCPCS: 36415; 70030-TC; 80307; 83690; 83735; 84443; 84703; 85025; 86580; 86592; 86705; 86803; 87340; 87806; G0480; J3411; Q0163